=== PATIENT | female | born 1975 | race Two or more races ===

== ENCOUNTER 2017-12-26 11:13 | Outpatient (CLI) | payer OTHER | END 2017-12-26 11:24 | disposition home or self-care (01) | LOC: SONOGRAMA 11:13 | DX: N94.89 Other specified conditions associated with female genital organs and menstrual cycle (principal) ==

== ENCOUNTER 2018-07-08 12:38 | Outpatient (CLI) | payer OTHER | END 2018-07-08 14:55 | disposition home or self-care (01) | LOC: SONOGRAMA 12:38 | DX: N60.11 Diffuse cystic mastopathy of right breast (principal); N60.12 Diffuse cystic mastopathy of left breast ==